=== PATIENT | male | born 1960 | race Caucasian/White ===

== ENCOUNTER 2018-09-07 13:31 | Emergency (ER) | payer BC ==
[~2018-09-07] VITALS: Ht 175.3 cm; Wt 83.9 kg
[2018-09-07 13:38] VITALS: BP 132/77; Ht 175.3 cm; Wt 83.9 kg
== END 2018-09-07 15:32 | disposition home or self-care (01) ==
LOC: ED 13:31
DX: K59.00 Constipation, unspecified (principal); I10 Essential (primary) hypertension
CPT/HCPCS: Q0092